=== PATIENT | male | born 1980 | race Caucasian/White ===

== ENCOUNTER 2020-12-03 20:33 | Emergency (ER) | payer BC ==
[2020-12-03] MEDS ORDERED: ORPHENADRINE C100 MG PO (21:59)
[2020-12-03 22:16] VITALS: BP 127/80
== END 2020-12-03 22:16 | disposition home or self-care (01) ==
LOC: ED 20:33
DX: M54.5 Low back pain (principal)
CPT/HCPCS: J1885; J2360